=== PATIENT | female | born 1970 | race Caucasian/White ===

== ENCOUNTER 2020-01-11 11:21 | Emergency (ER) | payer OTHER ==
--- NOTE | 2020-01-11 11:22 | UC ---
Cardiac HPI - HPI Summary HPI Summary: 49 yo female presents with feelings of palpitations. She tells me that last night around 2200 she felt palpitations like her heart was fluttering or skipping a beat. She had no pain or other symptoms at the time. This morning she woke and her feelings of palpitations were still present. She noted some very mild left sided chest pain that came and left within 20 minutes - prompting her visit to today. She notes she has a hx of MS and her medication for this has some "weird side effects" that she has been battling with for some time. No change in medication or dosing recently. Denies recent illness, fever, chills, SOB, abdominal pain, n/v, headache, dizziness. No family hx of CAD or CA. - History of Current Complaint Stated Complaint: CHESTPAIN Time Seen by Provider: 01/11/20 11:22 Hx Obtained From: Patient Onset/Duration: Sudden Onset Initial Severity: Mild Current Severity: Mild Pain Intensity: 3 - Allergy/Home Medications Allergies/Adverse Reactions: Allergies Allergy/AdvReac Type Severity Reaction Status Date / Time No Known Allergies Allergy Verified 01/11/20 12:24 Home Medications: Home Medications Acetaminophen TAB* [Tylenol TAB*] 975 mg PO Q6H PRN 01/11/20 [History Confirmed 01/11/20] Cholecalciferol (Vitamin D3) [Vitamin D3] 400 mg PO DAILY 01/11/20 [History Confirmed 01/11/20] Citalopram TAB* [CeleXA TAB*] 20 mg PO DAILY 01/11/20 [History Confirmed ] Interferon Beta-1A/Albumin [Rebif 44 Mcg/0.5 ml Syringe] 44 mcg SQ SEE INSTRUCTIONS 01/11/20 [History Confirmed 01/11/20] PMH/Surg Hx/FS Hx/Imm Hx - Additional Past Medical History Additional PMH: Multiple Sclerosis Psychological History: Anxiety, Depression - Surgical History Surgical History: None - Family History Known Family History: Positive: Hypertension - Social History Occupation: Employed Full-time Lives: With Family Alcohol Use: Occasionally Substance Use Type: None Smoking Status (MU): Never Smoked Tobacco Review of Systems All Other Systems Reviewed And Are Negative: No Constitutional: Positive: Negative Skin: Positive: Negative Eyes: Positive: Negative ENT: Positive: Negative Respiratory: Positive: Negative Cardiovascular: Positive: Palpitations, Chest Pain Gastrointestinal: Positive: Negative Neurovascular: Positive: Negative Neurological/Mental Status: Positive: Negative Psychological: Positive: Negative Physical Exam - Summary Physical Exam Summary: GENERAL: NAD. WDWN. No pain distress. SKIN: No rashes, sores, or open wounds. HEENT: Head: AT/NC Eyes: PERRLA. EOM intact. Conjunctiva clear without inflammation or discharge. Ears: Hearing grossly normal. TMs intact, no bulging, erythema, or edema. Nose: Nasal mucosa pink and moist. NTTP maxillary and frontal sinus. Throat: Posterior oropharynx without exudates, erythema, or tonsillar enlargement. Uvula midline. NECK: Supple. Nontender. No lymphadenopathy. CHEST: CTAB. No r/r/w. No accessory muscle use. Breathing comfortably and in no distress. CV: RRR. Pulses intact. Brisk cap refill. ABDOMEN: Soft. NTTP. No distention or guarding. No CVA tenderness. Bowel sounds present NEURO: Alert. PSYCH: Age appropriate behavior. Triage Information Reviewed: Yes Vital Signs: Vital Signs: Temp Pulse Resp BP Pulse Ox 97.5 F 63 16 134/86 100 01/11/20 11:31 01/11/20 11:31 01/11/20 11:31 01/11/20 11:31 01/11/20 11:31 Vital Signs Reviewed: Yes Diagnostics - EKG Summary of EKG Findings: NSR [address] changes or TWI. Read by Dr. Powell. - Assessment/Plan Course Of Treatment: EKG as above. Low risk factors, but given her continued palpitations with new onset chest pain this morning (since resolved) - recommend going to the ED for further evaluation. She declined ambulance transfer and will drive herself now. - Clinical Impression Provider Diagnosis: Palpitations Discharge ED - Sign-Out/Discharge Documenting (check all that apply): Patient Departure All imaging exams completed and their final reports reviewed: No Studies - Discharge Plan Condition: Stable Disposition: HOME-RECOMMEND TO ED Referrals: Gabbie Ortega MD [Primary Care Provider] - Additional Instructions: Please go to the ER for further evaluation of your palpitations - Billing Disposition and Condition Condition: STABLE Disposition: Home-Recommend to ED
[2020-01-11 11:37] VITALS: BP 134/86
--- OUTSIDE RECORDS SUMMARY | 2020-01-11 12:04 | XMS REPORT | Continuity of Care Document ---
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 Manuela Hirsch MD Onset: 2018 Abnormal cervical Papanicolaou smear with Manuela Hirsch MD Onset: 2018 positive human papillomavirus deoxyribonucleic acid test Cervicovaginal cytology: Low grade squamous Manuela Hirsch MD Onset: 2018 intraepithelial lesion Pelvic and perineal pain Manuela Hirsch MD Onset: 05/15/2019 Stress incontinence (female) (male) Manuela Hirsch MD Onset: 05/15/2019 Midline cystocele Bonnie Villalba MD Onset: 05/15/2019 Acute vaginitis GAURAV Robledo Onset: 05/15/2019 Social History Type Date Description Comments Sex Unknown Tobacco Use Start: Unknown Never Smoked Cigarettes ETOH Use Occasionally consumes alcohol Recreational Drug Use Denies Drug Use Tobacco Use Start: Unknown Patient has never smoked Smoking Status Reviewed: 12/31/19 Patient has never smoked Exercise Type/Frequency Exercises regularly Seat Belt/Car Seat Always uses seat belt Allergies, Adverse Reactions, Alerts Description No Known Drug Allergies Medications Active Medications SIG Qnty Indications Ordering Date Provider Rebif inject subcutaneously Unknown 44mcg/0.5ML three times a week. Soln Prefill avoid freezing. Syringe discard syringe after 1 dose. Citalopram 1 by mouth every day 30tabs Unknown Hydrobromide 20mg Tablets Lorazepam 1 tab every 6 hours 3tabs Unknown 2mg up to three times Tablets daily as needed for flying Vitamin D bid Unknown (Cholecalciferol) 1000Unit Tablets Medications Administered in Office Medication SIG Qnty Indications Ordering Provider Date PT SCRN Tbco Id as Non User Manuela Hirsch MD 12/31/2019 Injection No PT Tbco SCRN RNG GAURAV Robledo 01/30/2019 Injection PT SCRN Tbco Id as Non User GAURAV Robledo 01/30/2019 Injection PT SCRN Tbco Id as Non User Manuela Hirsch MD 11/12/2018 Injection PT SCRN Tbco Id as Non User Bonnie Villalba MD 01/03/2018 Injection Immunizations CPT Code Status Date Vaccine Lot # [id number] Given 08/10/2017 Influenza Virus Vaccine, Quadrivalent, Split, Preservative Free [id number] Given 09/06/2016 Influenza Virus Vaccine, Quadrivalent, Slit Virus, Im Use [id number] Given 08/12/2014 Tetnus, Diptheria Toxoids And Acellular Pertussis, PT > 7Yrs Old Vital Signs Date Vital Result Comment 12/31/2019 2:54pm BP Systolic 112 mmHg BP Diastolic 68 mmHg Height 65 inches 5'5" Weight 125.00 lb BMI (Body Mass Index) 20.8 kg/m2 Last Menstrual Period [id number] Parity 2 03/13/2019 10:41am BP Systolic 118 mmHg BP Diastolic 64 mmHg Height 65 inches 5'5" Weight 130.00 lb BMI (Body Mass Index) 21.6 kg/m2 Last Menstrual Period [id number] 4 Parity 2 Results Description No Information Available Procedures Date Code Description Status 11/28/2019 92525578 Mammogram Completed Medical Devices Description No Information Available Encounters Type Date Location Provider Dx Diagnosis Office Visit 12/31/2019 [facility] Manuela Hirsch, Z87.410 Personal history of 3:00p cervical dysplasia 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 You will be called with abnormal results to schedule a colposcopy or receive normal results in the mail or via the patient portal.Z01.411 Encounter for gynecological examination (general) ( routine) with abnormal findingsComments:Maintain routine exercise and healthy diet. Incorporate weight bearing exercise (walking/running with weights) to help prevent osteoporosis. Try to incorporate calcium into your regular diet ( Ideally 1200mg/day). Take Vitamin D supplementation(600-800 IU/day) to assist absorption of the calcium. Call to schedule a mammogram every 1-2 years.Perform periodic breast exams to become familiar with your breast tissue so you are more likely to notice something abnormal and do not need to be concerned aboutthe normal lumps. Return for annual exam in 1 year or earlier if concerns arise. Routine cervical cancer screening has changed. Pap smears are no longer done every year for low-risk women. A combination screening with both a pap smear (looking for abnormal cells) and HPV testing are recommended every 3 -5 years. It takes many years for normal cells to become abnormal and many more years forthe abnormal cells to become cancer. Women should still come for a yearly visit and exam. When there is an abnormal pap smear or +HPV testing more frequent screening is recommended. Functional Status Description No Information Available Mental Status Description No Information Available Referrals Description No Information Available
== END 2020-01-11 12:00 | disposition home health service (06) ==
LOC: UCEAST 11:21
DX: R00.2 Palpitations (principal); R07.9 Chest pain, unspecified; G35 Multiple sclerosis
CPT/HCPCS: 93005; 99212; G0463

== ENCOUNTER 2020-01-11 12:19 | Emergency (ER) | payer OTHER ==
--- NOTE | 2020-01-11 12:44 | ED ---
HPI Cardiac - HPI Summary HPI Summary: 49 year old female presents to the ED with a chief complaint of irregular heart rhythm starting last night. Patient feels a flutter in her chest without pain. The flutters were constant last night, occurring every several seconds, but today they are intermittent and less intense, happening every few minutes. Patient has never smoked tobacco. She has a past medical history of MS, but no previous cardiac issues. No FHx of cardiac problems. 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 Onset/Duration: Started Hours Ago, Still Present Timing: Constant - last night, Intermittent - today Initial Severity: Moderate Current Severity: Mild Pain Intensity: 0 Pain Scale Used: 0-10 Numeric Character: Fluttering Aggravating Factor(s): Nothing Alleviating Factor(s): Nothing - Allergy/Home Medications Allergies/Adverse Reactions: Allergies Allergy/AdvReac Type Severity Reaction Status Date / Time No Known Allergies Allergy Verified 01/11/20 12:24 Home Medications: Home Medications Acetaminophen TAB* [Tylenol TAB*] 975 mg PO Q6H PRN 01/11/20 [History Confirmed 01/11/20] Cholecalciferol (Vitamin D3) [Vitamin D3] 400 mg PO DAILY 01/11/20 [History Confirmed 01/11/20] Citalopram TAB* [CeleXA TAB*] 20 mg PO DAILY 01/11/20 [History Confirmed ] Interferon Beta-1A/Albumin [Rebif 44 Mcg/0.5 ml Syringe] 44 mcg SQ SEE INSTRUCTIONS 01/11/20 [History Confirmed 01/11/20] PMH/Surg Hx/FS Hx/Imm Hx Neurological History: Reports: Other Neuro Impairments/Disorders - MS - Surgical History Surgery Procedure, Year, and Place: [place]. T&A. tubes in ears Infectious Disease History: No Infectious Disease History: Denies: Traveled Outside the [place] in Last 30 Days - Family History Known Family History: Negative: Cardiac Disease, Hypertension, Respiratory Disease - Social History Alcohol Use: Daily Substance Use Type: Reports: None Smoking Status (MU): Never Smoked Tobacco Review of Systems Negative: Fever Positive: Palpitations, Other - irregular rhythm Positive: no symptoms reported All Other Systems Reviewed And Are Negative: Yes Physical Exam Triage Information Reviewed: Yes Vital Signs On Initial Exam: Initial Vitals Temp Pulse Resp BP Pulse Ox 97.4 F 71 16 126/91 98 01/11/20 12:21 01/11/20 12:21 01/11/20 12:21 01/11/20 12:21 01/11/20 12:21 Vital Signs Reviewed: Yes Procedures - Sedation Patient Received Moderate/Deep Sedation with Procedure: No Diagnostics - Vital Signs Vital Signs Temp Pulse Resp BP Pulse Ox 01/11/20 12:21 97.4 F 71 16 126/91 98 - Laboratory Result Diagrams: 01/11/20 12:48 01/11/20 12:48 Lab Statement: Any lab studies that have been ordered have been reviewed, and results considered in the medical decision making process. Disposition - Course Course Of Treatment: Ms. Owen came in for a fluttering palpitations. She had a very brief sharp, atypical chest pain but her heart score was essentially 0. She was kept on the monitor while labs were obtained and we saw no active ectopy. I recommended follow-up with her PCP. - Diagnoses Provider Diagnoses: Heart palpitations Discharge ED - Sign-Out/Discharge Documenting (check all that apply): Patient Departure - discharge home - Discharge Plan Condition: Stable Disposition: HOME Patient Education Materials: Heart Palpitations (ED) Referrals: Gabbie Ortega MD [Primary Care Provider] - Additional Instructions: Follow up with Dr. Ortega in 2-3 days. Return to the Emergency Department if you experience new or worsened symptoms. - Billing Disposition and Condition Condition: STABLE Disposition: Home - Attestation Statements Document Initiated by Scribe: Yes Documenting Scribe: Moose Styles Provider For Whom Jose is Documenting (Include Credential): Dr. Emanuel Dugan Scribrasta Attestation: I, Moose Styles, scribed for Dr. Emanuel Dugan on 01/11/20 at 2058. Scribe Documentation Reviewed: Yes Provider Attestation: The documentation as recorded by the scribe, Moose Styles accurately reflects the service I personally performed and the decisions made by me, Dr. Emanuel Dugan Status of Scribe Document: Viewed
[2020-01-11 13:05] LABS: ABS Eosinophils 0.1 10^3/ul (0-0.6); ABS Monocytes 0.2 10^3/ul (0-0.8); ABS Neutrophils 1.8 10^3/ul (1.5-7.7); Eosinophil % 4.5 %; Hematocrit 35 % (35-47); Hemoglobin 11.6 g/dL (12.0-16.0); Lymphocyte % 30.8 %; Mean Corpuscular HGB Conc 33 g/dL (31-36); Mean Corpuscular Hemoglobin 27 pg (27-31); Mean Corpuscular Volume 82 fL (80-97); Mean Platelet Volume 10.3 fL (7.4-10.4); Nucleated Red Blood Cells % 0.1; Platelet Count 122 10^3/uL (150-450); Red Blood Count 4.24 10^6 /uL (3.70-4.87); Red Cell Distribution Width 13 % (10-15); White Blood Count 3.1 10^3/uL (3.5-10.8)
[2020-01-11 13:24] LABS: Albumin 4.2 g/dL (3.2-5.2); Albumin/Globulin Ratio 1.4 (1-3); BUN/Creatinine Ratio 20.3 (8-20); Calcium 9.6 mg/dL (8.6-10.3); EGFR African American 100.9 (>60); EGFR Non-African American 83.4 (>60); Globulin 2.9 g/dL (2-4); Potassium 3.8 mmol/L (3.5-5.0); Total Bilirubin 0.4 mg/dL (0.2-1.0); Total Protein 7.1 g/dL (6.4-8.9)
[2020-01-11 13:49] LABS: TSH (Thyroid Stimulating Horm) 2.34 mcIU/mL (0.34-5.60)
[2020-01-11 15:13] VITALS: BP 113/84
== END 2020-01-11 15:07 | disposition home or self-care (01) ==
LOC: ED 12:19
DX: R00.2 Palpitations (principal); Z79.899 Other long term (current) drug therapy
CPT/HCPCS: 36415; 71046; 80053; 83605; 83735; 84443; 84484; 85025; 99282